=== PATIENT | female | born 1955 | race Caucasian/White ===

== ENCOUNTER → 2019-04-24 | Outpatient (CLI) | payer OTHER ==
[~2019-04-24] VITALS: Ht 177.8 cm; Wt 65.8 kg
[~2019-04-24] MED LIST: ABILIFY 2 MG2 M1 PO; ASPIR 8181 MG PO; B COMPLEX WITH1 EAC1 PO; B12INJ IM; BIOTIN5000 MCG PO; BUSPIRONE HCL10 MG PO; CURCUMIN1 GM PO; CYMBALTA30 MG PO; CYMBALTA60 MG PO; K2 PLUS D3 TAB1 EACH PO; LYRICA100 MG PO; METHYL FOLATE PO; MOBIC15 MG PO; MULTIVITAMINS PO; NEURONTIN 300300 M1 PO; PROBIOTIC1 EAC1 PO; PROGESTERONE100 MG PO; REMERON15 MG PO; SPIRONOLACTONE25 M1 PO; SYNTHROID25 MC1 PO; TRAZODONE HCL100 MG PO; TUMERIC PO
[2019-04-24 09:52] VITALS: BP 111/68
--- NOTE | 2019-04-24 10:19 | NUR ---
Pain Clinic Assessment: 1. History of Osteoarthritis: Not Applicable History of Rheumatoid Arthritis: Not Applicable 2. Height: 5 ft. 10 in. 177.8 cm. Weight: 145.0 lb. oz. 65.772 kg. Patient's BMI: 20.8 3. Vital Signs: BP: 111/68 Pulse: 84 Resp: 14 Temp: 02 Sat: 100 ECG Mon: 4. Pain Intensity: 7 5. Fall Risk: Dizziness: N Needs help standing or walking: N Fallen in the last 3 months: N Fall risk comments: 6. Patient on Blood Thinner: None 7. History of Hypertension: N 8. Opioid Therapy greater than 6 weeks: N Opiate Contract Signed: 9. Risk Assessment Tool Provided: 10. Functional Assessment Tool: 11. Recreational Drug Use: Never Drug Type: Tobacco Use: Never Smoker Tobacco Type: Amount or Packs/day: How Many Years: Alcohol Use: No Frequency: Quant:
--- NOTE | 2019-05-08 07:57 | HPC ---
[facility] [address] [place] [address] PAIN MANAGEMENT CONSULTATION Name: MAYRA MCKINLEY Room #: REG Yvonne Pal.#: [id number] Admission: 04/24/19 Attend Phys: Vahe Stevens DO Discharge: Date of : 59 Report #: [id number] THIS REPORT FOR: //name// CC: Mirta Stevens DATE OF SERVICE: 04/24/2019 CHIEF COMPLAINT: Neck pain, bilateral upper extremity pain with paresthesias. HISTORY OF PRESENT ILLNESS: As you know, patient is a very pleasant 63-year-old female who has been referred to our service by her neurosurgeon, Dr. Isak Marvin for evaluation for cervical radiculopathy. She is a 5-1/2 months out from her redo carpal tunnel release, but has not noted much in the way of improvement in her bilateral hand pain, which is believed to be due more to carpal tunnel syndrome, then her cervical spine. She is complaining of neck pain that is present, but does not appear to have any radicular component. The patient has no symptoms in the arms, only in the wrist, at the hands and some neck discomfort. She sought evaluation through Neurosurgery team who advised conservative treatment course and she was subsequently referred to our clinic. The patient indicates pain is continuous. She describes the pain as burning. She places current pain score 7/10. Daily average at 7/10, worst pain has been at 10/10. The patient states the pain is exacerbated with extended sitting or standing. Nothing has improved pain. She has been referred to our service to discuss treatment options for carpal tunnel syndrome and possible cervical radiculopathy. PAST MEDICAL HISTORY: 1. Hypothyroidism. 2. Osteoarthritis. 3. Chronic insomnia. 4. Depression. 5. Hypertension. PAST SURGICAL HISTORY: 1. C3-C4 posterior cervical fusion. 2. Right carpal tunnel release. 3. Left carpal tunnel release. 4. Right carpal tunnel revision. 5. Left total knee arthroplasty. 6. Hammertoe surgery x 2. SOCIAL HISTORY: The patient is reported as a former smoker, quit approximately 30 years ago. She denies IV or illicit drug use. She quit alcohol in 2018. [facility] [address] [place] [address] PAIN MANAGEMENT CONSULTATION Name: MAYRA MCKINLEY Room #: REG [facility].#: [id number] Admission: 04/24/19 Attend Phys: Vahe Stevens DO Discharge: Date of : 59 Report #: [id number] The patient was employed as a legal support assistant. She is not working, has not been in the workforce for about 16 months. She reports she is receiving disability income and benefits. She is not in litigation in regards to her pain. She is unaccompanied at today's visit. REVIEW OF SYSTEMS: Positive for fatigue and weakness, wearing corrective eyewear, nocturia, numbness and tingling sensations and depression. All other review of systems negative per 12-point review of systems other than those listed in history of present illness. Pain impact score 38/70 indicating moderate interference of daily activities secondary to pain. ALLERGIES: No reported drug allergies. CURRENT MEDICATIONS: Aspirin 81 mg per day, multivitamin 1 tab per day, methylfolate 5000 mcg once a day, turmeric 2 capsules every morning, lactobacillus 1 tab per day, vitamin B complex 1 tab per day, biotin 5000 mcg per day, levothyroxine 25 mcg per day, meloxicam 15 mg once a day, trazodone 100 mg p.o. at bedtime, mirtazapine 15 mg p.o. at bedtime, gabapentin 300 mg t.i.d., duloxetine 30 mg 3 tabs p.o. at bedtime, buspirone 10 mg b.i.d., aripiprazole 2 mg once a day, spironolactone 25 mg per day, progesterone 100 mg per day, vitamin B12 injected intramuscularly every month. IMAGING: MRI of cervical spine obtained 02/22/2019 shows postsurgical changes at the C3-C4 level. There is persistent encephalomalacia in the spinal cord at this L3-L4 level. Multilevel spondylosis of the cervical spine resulting in multilevel spinal stenosis greatest at the C5-C6, C6-C7 levels. There is moderate to advanced bilateral neural foraminal stenosis at L3-L4, moderate bilateral neural foraminal stenosis at C4-C5, C5-C6 and C6-C7. PHYSICAL EXAMINATION: VITAL SIGNS: Blood pressure 111/68, pulse 84, respiratory rate 14 and unlabored. The patient is 100% on room air. Height 5 feet 10 inches tall, weight 145 pounds, BMI calculated 20.8. GENERAL: Well-developed, well-nourished, well-hydrated 63-year-old female appearing her stated age, placing current pain score at 7/10. HEENT: Normocephalic, atraumatic. Pupils equal, round and reactive to light. Extraocular muscles are intact. Sclerae nonicteric without injection. NEUROLOGIC: Speech is fluent. The patient deemed a good historian. LUNGS: Clear, no wheeze, rhonchi or rales. CARDIOVASCULAR: Regular. No appreciable gallop, no rub. ABDOMEN: Soft, nontender, nondistended, normoactive bowel sounds. EXTREMITIES: Show no clubbing, no cyanosis, and no edema. MUSCULOSKELETAL: The patient does have some right hand machine buffer weakness when compared to left. Her rating of muscles approximately 4/5 in the machine buffer strength [facility] [address] [place] [address] PAIN MANAGEMENT CONSULTATION Name: MAYRA MCKINLEY Room #: REG HARIKA BaltazarKenyaCuauhtemocKenya#: [id number] Admission: 04/24/19 Attend Phys: Vahe Stevens DO Discharge: Date of : 59 Report #: [id number] versus 5/5 on the left. There are some sensory changes in the hands, mainly from the wrist down. These are noted both to tactile sensation and pinprick. Upper extremity strength other than the machine buffer appears equal and symmetrical 5/5. Spurling's test is equivocal. Deep tendinous reflexes appear symmetrical in comparing left upper extremity to right. ASSESSMENT: 1. Chronic cervical radiculopathy. 2. Cervical spinal stenosis. 3. Displacement of a cervical intervertebral disk with radiculopathy. 4. Cervical spondylosis with radiculopathy. 5. Carpal tunnel syndrome. 6. Chronic intractable pain. PLAN: 1. Based on today's physical exam and history patient has provided, the description the patient uses in regards to pain as well as the findings from recent imaging study, it does appear the patient is suffering from cervical radiculopathy and to some extent a continued carpal tunnel condition, mainly on the right side. We discussed with the patient the treatment options for cervical radiculopathy today, the following was discussed with the patient. We discussed physical therapy, stretching exercises and traction techniques to address cervical pain directly. We discussed medication management with escalating doses of neuropathic medications as she is on an extremely low dose of gabapentin at this time. We discussed other neuropathics with the patient as well including amitriptyline, nortriptyline, long-acting form of gabapentin either as Gralise or Horizant. We also discussed Lyrica and Cymbalta. We discussed the more aggressive treatment options for cervical radiculopathy including cervical epidural injection. We also discussed cervical spinal cord stimulator for which the patient was referred to our clinic and ultimately surgical decompression. After reviewing the risks and benefits of all proposed treatment options, the patient wishes to remain conservative and trial conservative medication management. 2. The patient is currently taking gabapentin at 300 mg 3 times a day, has attempted escalation of medication in the past with only side effects of sleepiness, disorientation and confusion. We recommend given the side effects she experienced with immediate release formulation of gabapentin to try a more effective long-acting form. We have provided the patient with samples of Gralise. She will start at the 300 mg dose escalate the dose until which time she reaches good efficacy or side effects she cannot tolerate the side effects. We are watching for sleepiness, disorientation, confusion, mental slowing. If the patient notes side effects, reduce to the dose prior and contact our clinic. If she is having no side effects, escalate the dose to the most effective level. She was given a Gralise pack and advised to contact our clinic when she reaches an efficacious level. We will then provide the patient with a full [address] [address] PAIN MANAGEMENT CONSULTATION Name: MAYRA MCKINLEY Room #: REG HARIKA Romero#: [id number] Admission: 04/24/19 Attend Phys: Vahe Stevens DO Discharge: Date of : 59 Report #: [id number] prescription of this medication. 3. We will see the patient back in followup visit in approximately one month. She wishes to trial conservative medication management initially. We will make adjustments as necessary based on efficacy. We will see her back in 30 days to further adjust medication if necessary. 4. We wish to thank Dr. Marvin for the opportunity to see the patient in consultation. We will keep you apprised of response to treatment as we address chronic cervical radiculopathy with underlying carpal tunnel syndrome on the right side. Again, we wish to thank you for the opportunity to see the patient in consultation. <ELECTRONICALLY SIGNED> By: Vahe Stevens DO 05/08/19 [id number] Vahe Stevens DO /nt
== END ==
LOC: PAIN 04-20 12:47
DX: M48.02 Spinal stenosis, cervical region (principal); M47.22 Other spondylosis with radiculopathy, cervical region; M50.10 Cervical disc disorder with radiculopathy, unspecified cervical region; G56.00 Carpal tunnel syndrome, unspecified upper limb; G89.4 Chronic pain syndrome; I10 Essential (primary) hypertension; F32.9 Major depressive disorder, single episode, unspecified; M19.90 Unspecified osteoarthritis, unspecified site; E03.9 Hypothyroidism, unspecified

== ENCOUNTER → 2019-05-08 | Outpatient (CLI) | payer OTHER ==
[~2019-05-08] VITALS: Ht 177.8 cm; Wt 73.6 kg
[2019-05-08 09:45] VITALS: BP 109/76
--- NOTE | 2019-05-08 09:48 | NUR ---
Pain Clinic Assessment: 1. History of Osteoarthritis: Not Applicable History of Rheumatoid Arthritis: Not Applicable 2. Height: 5 ft. 10 in. 177.8 cm. Weight: 162.2 lb. oz. 73.573 kg. Patient's BMI: 23.3 3. Vital Signs: BP: 109/76 Pulse: 85 Resp: 18 Temp: 02 Sat: 99 ECG Mon: 4. Pain Intensity: 7 5. Fall Risk: Dizziness: N Needs help standing or walking: N Fallen in the last 3 months: N Fall risk comments: 6. Patient on Blood Thinner: None 7. History of Hypertension: N 8. Opioid Therapy greater than 6 weeks: N Opiate Contract Signed: 9. Risk Assessment Tool Provided: 10. Functional Assessment Tool: 11. Recreational Drug Use: Never Drug Type: Tobacco Use: Never Smoker Tobacco Type: Amount or Packs/day: How Many Years: Alcohol Use: No Frequency: Quant:
--- NOTE | 2019-05-22 12:47 | HPC ---
[facility] [address] [place] [address] PAIN MANAGEMENT CONSULTATION Name: MAYRA MCKINLEY Room #: REG APRILYvonne Romero#: [id number] Admission: 05/08/19 Attend Phys: Vahe Stevens DO Discharge: Date of : 59 Report #: [id number] THIS REPORT FOR: //name// CC: Mirta Marvin MD DATE OF SERVICE: 05/08/2019 CHIEF COMPLAINT: Neck pain, bilateral upper extremity pain with paresthesias. HISTORY OF PRESENT ILLNESS: As you know, the patient is a very pleasant 64-year-old female who returns today in followup visit to discuss efficacy of medication started at the last visit. She was referred to our clinic by her neurosurgeon, Dr. Isak Marvin for evaluation for cervical radiculopathy. We chose to begin the patient on medication management to address ongoing symptoms of burning, numbness and tingling. She indicates that she is now up to speed on her gabapentin, but has not noted much in the way of improvement. She is experiencing some side effects of sleepiness, disorientation and wishes an adjustment in therapy. She is excited about the potential that the medication management might to control her symptoms. She is resistant to the spinal cord stimulator. She does not want implanted devices if she can avoid. She returns today to make further adjustments. Pain today is 7/10. ALLERGIES: No reported drug allergies. CURRENT MEDICATIONS: See extensive list in chart. SOCIAL HISTORY: The patient denies current tobacco use, she quit 30 years ago. Denies IV or illicit drug use. She quit alcohol in 2018. She is employed as a paralegal supervisor. She is not working at present, she has been out of work for about 16 months. Unaccompanied today. IMAGING: No new imaging available. PHYSICAL EXAMINATION: VITAL SIGNS: Blood pressure 109/76, pulse is 85, respiratory rate 18 and unlabored. The patient is 99% on room air. Height 5 feet 10 inches tall, weight 162.2 pounds and BMI calculated 23.3. GENERAL: Well-developed, well-nourished, well-hydrated 64-year-old female, appearing stated age, pain is rated today at 7/10. HEENT: Normocephalic, atraumatic. Pupils equal, round, reactive to light. EXTREMITIES: Show no clubbing, no cyanosis, no edema. MUSCULOSKELETAL: Upper extremity strength is reduced with right hand sales administrator versus left. Rating of muscle strength 4/5 sales administrator strength on the right when compared to left at 5/5. remaining musculature is 5/5. Muscle bulk and tone [address] [address] PAIN MANAGEMENT CONSULTATION Name: MAYRA MCKINLEY Room #: REG HARIKA Romero#: [id number] Admission: 05/08/19 Attend Phys: Vahe Stevens DO Discharge: Date of : 59 Report #: [id number] equal and symmetrical in upper extremities. Spurling's test is equivocal. ASSESSMENT: 1. Cervical radiculopathy. 2. Cervical spinal stenosis. 3. Displacement of a cervical intervertebral disk with radiculopathy. 4. Cervical spondylosis with radiculopathy. 5. Carpal tunnel syndrome. 6. Chronic intractable pain. PLAN: 1. The patient returns today in followup visit having noted no improvement in symptoms with the gabapentin, but side effects were noted of somnolence, decreased mental acuity, disorientation, confusion. We did discuss possibly rotating medication from the gabapentin to another agent. She is amenable to undergo adjustments today. She wishes to avoid interventional treatment if at all possible. 2. We will start the patient on Lyrica 100 mg dose 1 tab p.o. b.i.d. with plans to escalate the dose all the way up to potentially 450 mg depending on efficacy versus side effects. I have given the patient the Lyrica prescription of 100 mg b.i.d. dose, #60 to initiate as quickly as possible. She will contact our clinic once she has had the Lyrica 100 mg b.i.d. dose for 7 days. We will then make the adjustments if necessary to increase the medication for neuropathic pain control. She will contact our clinic by phone. She does not need to make an appointment to make those adjustments. 3. We will see the patient back in followup visit in 30 days, assuming Lyrica is working well we need to make no further adjustments. If adjustments need to be made, we will establish her followup appointment, but make those adjustments over the phone with followup to determine efficacy. The patient will contact our clinic with any questions or concerns in regards to medication. <ELECTRONICALLY SIGNED> By: Vahe Stevens DO 05/22/19 1247 [id number] Vahe Stevens DO /nt
== END ==
LOC: PAIN 06:49
DX: M50.10 Cervical disc disorder with radiculopathy, unspecified cervical region (principal); M48.02 Spinal stenosis, cervical region; M47.22 Other spondylosis with radiculopathy, cervical region; G89.4 Chronic pain syndrome; G56.00 Carpal tunnel syndrome, unspecified upper limb

== ENCOUNTER → 2019-06-05 | Outpatient (CLI) | payer OTHER ==
[~2019-06-05] VITALS: Ht 177.8 cm; Wt 72.8 kg
[2019-06-05 10:02] VITALS: BP 106/70
--- NOTE | 2019-06-05 10:16 | NUR ---
Pain Clinic Assessment: 1. History of Osteoarthritis: Not Applicable History of Rheumatoid Arthritis: Not Applicable 2. Height: 5 ft. 10 in. 177.8 cm. Weight: 160.4 lb. oz. 72.757 kg. Patient's BMI: 23.0 3. Vital Signs: BP: 106/70 Pulse: 86 Resp: 14 Temp: 02 Sat: 98 ECG Mon: 4. Pain Intensity: 7 5. Fall Risk: Dizziness: N Needs help standing or walking: N Fallen in the last 3 months: N Fall risk comments: 6. Patient on Blood Thinner: None 7. History of Hypertension: N 8. Opioid Therapy greater than 6 weeks: N Opiate Contract Signed: 9. Risk Assessment Tool Provided: 10. Functional Assessment Tool: 11. Recreational Drug Use: Never Drug Type: Tobacco Use: Never Smoker Tobacco Type: Amount or Packs/day: How Many Years: Alcohol Use: No Frequency: Quant:
--- NOTE | 2019-06-12 16:27 | HPC ---
[facility] [address] [place] [address] PAIN MANAGEMENT CONSULTATION Name: MAYRA MCKINLEY Room #: REG HARIKA Kae.#: [id number] Admission: 06/05/19 Attend Phys: Vahe Stevens DO Discharge: Date of : 59 Report #: [id number] THIS REPORT FOR: //name// CC: Mirta Marvin MD DATE OF SERVICE: 06/05/2019 REFERRING PHYSICIAN: Dr. Isak Marvin. CHIEF COMPLAINT: Neck pain, bilateral upper extremity pain with paresthesias. HISTORY OF PRESENT ILLNESS: As you know, the patient is a very pleasant 64-year-old female returning in followup visit with continued paresthesia. She is indicating pain level of 7/10. She returns to make adjustments in medication management. She was trialled on Lyrica, but gained approximately 8 pounds over a 2-week period of time and discontinued the medication. The weight has resolved. Appears to be watertight retention. She returns today in followup visit to make adjustments in medication management in hopes of improving neuropathic pain. She has considered her options and is considering surgical procedures, but wishes to trial more conservative treatment per the request of Dr. Marvin. She returns for further adjustments in therapy today. She indicates no new injury, no new trauma or any changes in medical history since our last visit except for the discontinuation of the Lyrica due to weight gain. ALLERGIES: No known drug allergies. CURRENT MEDICATIONS: Vitamin B12 1000 mcg intramuscular per month, progesterone 100 mg once a day, spironolactone 25 mg per day, aripiprazole 2 mg once a day, buspirone 10 mg once a day, duloxetine 60 mg once a day, mirtazapine 15 mg per day, trazodone 100 mg p.o. at bedtime, meloxicam 15 mg p.o. q.a.m., levothyroxine 25 mcg per day, biotin 5000 mcg per day, vitamin B complex 1 tab per day, lactobacillus 1 tab per day, vitamin D3 one tab per day, turmeric 1 gram per day, methylfolate 5000 mcg per day, aspirin 81 mg per day. SOCIAL HISTORY: The patient denies current tobacco use, she quit about 30 years ago. Denies IV or illicit drug use. She quit alcohol in 2018. She is employed as a paralegal assistant, working, not receiving workmen's compensation, unaccompanied today. IMAGING: No new imaging available. PHYSICAL EXAMINATION: VITAL SIGNS: Blood pressure 106/70, pulse 86, respiratory rate 14 and unlabored. The patient is 98% on room air. Height 5 feet 10 inches tall, [place] [address] PAIN MANAGEMENT CONSULTATION Name: MAYRA MCKINLEY Room #: REG CL M.R.#: [id number] Admission: 06/05/19 Attend Phys: Vahe Stevens DO Discharge: Date of : 59 Report #: [id number] weight 160.4 pounds, BMI calculated 23. GENERAL: Well-developed, well-nourished, well-hydrated 63-year-old female appearing stated age, pain is rated around 7/10. HEENT: Normocephalic, atraumatic. Pupils equal, round and reactive to light. EXTREMITIES: Show no clubbing, no cyanosis and no edema. MUSCULOSKELETAL: Lower extremity strength remains symmetrical 5/5 with slight reduced hand fundraising officer on the right when compared to left. Rating of muscle strength and fundraising officer is 4-4+/5, 5/5 on left. No atrophy. Muscle bulk and tone is symmetrical in comparing left upper extremity to right upper extremity. Spurling's test is equivocal. ASSESSMENT: 1. Cervical radiculopathy. 2. Cervical spinal stenosis. 3. Displacement of cervical intervertebral disk with radiculopathy. 4. Cervical spondylosis with radiculopathy. 5. Carpal tunnel syndrome. 6. Chronic intractable pain. PLAN: 1. The patient returns today in followup visit indicating weight gain with Lyrica. She gained about 8 pounds over a 2-week period of time. She discontinued the medication and the weight is now coming off. She wishes to return to gabapentin therapy to determine if her symptoms can improve with such treatment. She and I discussed this at length today and she is agreeable to return to the gabapentin dose of 1800 mg once a day. This will be provided in the Gralise formulation, a long-acting form of medication. If this is not covered by her insurance, we could try Horizant at 600 mg twice a day, which gives a similar efficacy. 2. The patient will return to the 1800 mg gabapentin dose to determine if her numbness and tingling improves. If it does, we will continue medication. If this does not improve, we can discuss other options for treatment including the surgical option that may be necessary. The patient is amenable to this. 3. The patient was given a sample of Gralise to return to the 1800 mg dose. She will call us next week with efficacy. <ELECTRONICALLY SIGNED> By: Vahe Stevens DO 06/12/19 1627 [id number] [id number] Vahe Stevens, DO /nt
== END ==
LOC: PAIN 06:45
DX: M48.02 Spinal stenosis, cervical region (principal); M47.22 Other spondylosis with radiculopathy, cervical region; M50.10 Cervical disc disorder with radiculopathy, unspecified cervical region; G89.4 Chronic pain syndrome

== ENCOUNTER → 2020-04-16 | Outpatient (CLI) | payer OTHER | LOC: CAT 08:55 | PROVIDERS: ATTEND Family Medicine | DX: Z13.6 Encounter for screening for cardiovascular disorders (principal); I25.10 Atherosclerotic heart disease of native coronary artery without angina pectoris; E78.00 Pure hypercholesterolemia, unspecified ==